=== PATIENT | female | born 1995 | race Two or more races ===

== ENCOUNTER 2017-04-28 14:48 | Emergency (ER) | payer OTHER ==
[~2017-04-28] VITALS: Ht 157.5 cm; Wt 60.3 kg
--- NOTE | 2017-04-28 15:00 | NUR ---
PT ISIDORO FROM HOME FOR SYNCOPAL EPISODE THIS AM. DENIES HEAD TRAUMA. C/O BACK PAIN. VS. SEEN BY MD FOR EVAL. SAFETY AND COMFORT MEASURES PROVIDED. WILL MONITOR.
--- NOTE | 2017-04-28 15:30 | NUR ---
IV ACCESS STARTED. BLOOD DRAWN FOR LABS. PT MEDICATED ORDERED.
[2017-04-28] MEDS: IV NS 0.9% 1,000 ML BAG IV ONE ×2 (15:47→17:33)
[2017-04-28 15:50] LABS: BASOPHILS % (AUTO) 0.5 % (0.0-2.0); EOSINOPHILS # (AUTO) 0.2 /CMM (0.0-0.7); HEMATOCRIT 47 % (33-45); HEMOGLOBIN 16.1 g/dL (11.5-14.8); LYMPHOCYTES # (AUTO) 2.1 /CMM (0.8-4.8); LYMPHOCYTES % (AUTO) 21.9 % (20.0-44.0); MEAN CORPUSCULAR HEMOGLOBIN 31 PG (26.0-33.0); MEAN CORPUSCULAR HGB CONC 34 g/dl (31.0-36.0); MEAN CORPUSCULAR VOLUME 90 fL (82-100); MONOCYTES # (AUTO) 0.6 /CMM (0.1-1.30); MONOCYTES % (AUTO) 6.5 % (2.0-12.0); NEUTROPHILS # (AUTO) 6.6 /CMM (1.8-8.9); NEUTROPHILS % (AUTO) 69.1 % (43.0-81.0); PLATELET COUNT (AUTO) 307 /CMM (150-450); RDW COEFFICIENT OF VARIATION 11.6 (11.5-15.0); RED BLOOD CELL COUNT(AUTO) 5.25 MIL/uL (4.0-5.2); WHITE BLOOD COUNT (AUTO) 9.5 K/uL (4.3-11.0)
[2017-04-28 16:03] LABS: CALCIUM, SERUM 8.8 mg/dL (8.5-10.1); CREATININE 0.6 mg/dL (0.6-1.3); POTASSIUM 3.8 mmol/L (3.5-5.1)
[2017-04-28 16:08] LABS: INR 1.09 (0.87-1.13); PROTHROMBIN TIME 11.4 SECS (9.5-12.7)
[2017-04-28 16:09] LABS: ALBUMIN 4.2 g/dL (3.4-5.0); BILIRUBIN,DIRECT 0.2 mg/dL (0.0-0.2); BILIRUBIN,TOTAL 0.7 mg/dL (0.2-1.0); TOTAL PROTEIN, SERUM 7.6 g/dL (6.4-8.2)
[2017-04-28] MEDS ORDERED: IV NS 0.9% 250 ML IV ONE (16:16)
[2017-04-28] MEDS ORDERED: IOHEXOL-350 100 ML VIAL IV ONE (16:16)
[2017-04-28 16:23] LABS: APPEARANCE,URINE Hazy (CLEAR); BILIRUBIN,URINE Negative (NEGATIVE); BLOOD, URINE Negative Ery/uL (NEGATIVE); COLOR,URINE Yellow (YELLOW); KETONES,URINE 80 (NEGATIVE); LEUKOCYTE ESTERASE ,URINE Negative (NEGATIVE); NITRITE, URINE Negative (NEGATIVE); PROTEIN,URINE Negative (NEGATIVE); UGLUCOSE Negative (NEGATIVE); UROBILINOGEN,URINE 0.2 EU/dL (0.2)
[2017-04-28 16:24] LABS: PREGNANCY TEST URINE QUAL NEGATIVE (NEGATIVE)
[2017-04-28 16:32] LABS: BACTERIA,URINE None seen /HPF (None Seen); MUCUS,URINE Few /LPF (None Seen); RBC,URINE 0-3 /HPF (0-2); SQUAMOUS EPITHELIAL CELL,UR Few /HPF (None Seen)
--- NOTE | 2017-04-28 16:32 | NUR ---
PT TAKEN TO CT.
[2017-04-28 18:47] VITALS: BP 115/60
--- NOTE | 2017-04-28 18:47 | NUR ---
Patient discharged to home in stable condition. Written and verbal after care instructions given. Patient verbalizes understanding of instruction.
--- NOTE | 2017-04-28 18:47 | NUR ---
IV removed. Catheter intact and site benign. Pressure and 4x4 applied to site. No bleeding noted.
== END 2017-04-28 18:48 | disposition home or self-care (01) ==
LOC: ER 14:49
DX: R55 Syncope and collapse (principal); E86.0 Dehydration; I50.9 Heart failure, unspecified; J45.909 Unspecified asthma, uncomplicated
CPT/HCPCS: 36415; 71010-TC; 80048-TC; 80076-TC; 81000-TC; 84703-TC; 85025-TC; 85730-TC; 93970-TC; A4606; J7030; J7050; Q9967; Z7610